=== PATIENT | female | born 1960 | race Caucasian/White ===

== ENCOUNTER 2016-11-21 07:26 | Day surgery (SDC) | payer BC ==
[2016-11-20 08:48] VITALS: BMI 30.9
[~2016-11-21 07:26] MED LIST: LACTATED RINGERS 1,000 ML IV SCH; LIDOCAINE 1% 20 ML VIAL (10MG/ML) FOR IV START INTRADERMA PRN
[2016-11-21 07:57] VITALS: RESP 18; TEMP 97.9
[2016-11-21] MEDS ORDERED: PROPOFOL 10 MG/ML 20 ML VIAL IV ONE (08:15)
[2016-11-21] MEDS ORDERED: LIDOCAINE 1% INJ 10MG/ML (20 ML MDV) ONE (08:15)
--- NOTE | 2016-11-21 08:35 | P.PCN ---
Date of Procedure: 11/21/16 Procedure(s) Performed: BRIEF HISTORY: Patient is a 56-year-old pleasant white female, scheduled for an elective colonoscopy as a part of screening for colorectal neoplasia. PROCEDURE PERFORMED: Colonoscopy with snare polypectomy. PREOPERATIVE DIAGNOSIS: Screening for colon cancer. IV sedation per Anesthesia. PROCEDURE: After informed consent was obtained, the patient, was brought into the endoscopy unit. IV sedation was administered by Anesthesia under continuous monitoring. Digital rectal examination was normal. Initially the Olympus CF- 160 flexible video colonoscope was then inserted in the rectum, gradually advanced into the cecum without any difficulty. Careful examination was performed as the scope was gradually being withdrawn. Ileocecal valve and the appendiceal orifice were visualized and appeared normal. Prep was excellent. Mucosa of the cecum, ascending colon, transverse colon, descending colon, appeared normal. In the sigmoid colon scattered Sigmoid diverticulosis seen. The rest of the sigmoid colon, and rectum appeared normal. In the rectum there were 3 polyps measuring between 5 mm to 1 size all of which were removed by snare polypectomy. Retroflexion was performed in the rectum and no lesions were seen. The patient tolerated the procedure well. IMPRESSION: 5 mm to 1 cm 3 rectal polyps status post polypectomy Scattered sigmoid diverticulosis RECOMMENDATIONS: Findings of this examination were discussed with the patient as well as her family. She was advised to follow with the biopsy results. If the biopsy shows a tubular adenoma she can have a repeat colonoscopy in 5 years.
[2016-11-21 08:55] VITALS: BP 129/82; PULSE 61
== END 2016-11-21 09:15 | disposition home or self-care (01) ==
LOC: ORWHC2ENDO 07:26
PROVIDERS: ATTEND Internal Medicine Gastroenterology
DX: Z12.11 Encounter for screening for malignant neoplasm of colon (principal); D12.8 Benign neoplasm of rectum; K57.30 Diverticulosis of large intestine without perforation or abscess without bleeding; E07.9 Disorder of thyroid, unspecified; I10 Essential (primary) hypertension; Z87.891 Personal history of nicotine dependence; F32.9 Major depressive disorder, single episode, unspecified; Z79.899 Other long term (current) drug therapy
CPT/HCPCS: 88305; 45385; J2001; J2704

== ENCOUNTER → 2022-07-31 | Outpatient (CLI) | payer BC ==
--- NOTE | 2022-08-01 09:45 | MM ---
Reason for Exam: Screening (asymptomatic). Last mammogram was performed 6 year(s) and 4 month(s) ago. Patient History: Menarche at age 10. First Full-Term at age 21. Hysterectomy at age 33. Paternal aunt had breast cancer, age 70. Risk Values: Brunilda 5 year model risk: 1.4%. NCI Lifetime model risk: 5.8%. Prior Study Comparison: 10/08/2010 Bilateral Screening Mammogram, [facility]. 04/03/2016 Bilateral Screening Mammogram, [facility]. Tissue Density: There are scattered fibroglandular densities. Findings: Analyzed By CAD. There is no suspicious group of microcalcifications or new suspicious mass in either breast. Stable chronic nodularity within the right breast. Overall Assessment: Benign, BI-RAD 2 Management: Screening Mammogram of both breasts in 1 year. A clinical breast exam by your physician is recommended on an annual basis and results should be correlated with mammographic findings. Electronically signed and approved by: Homero Foreman D.O.
== END | disposition home or self-care (01) ==
LOC: RADMAMWWP 09:07
PROVIDERS: ATTEND Family Medicine
DX: Z12.31 Encounter for screening mammogram for malignant neoplasm of breast (principal); Z80.3 Family history of malignant neoplasm of breast
CPT/HCPCS: 77067

== ENCOUNTER → 2024-04-12 | Outpatient (CLI) | payer MEDICARE ==
--- NOTE | 2024-04-12 23:22 | BD ---
EXAMINATION TYPE: Axial Bone Density DATE OF EXAM: 04/12/2024 CLINICAL HISTORY: 64 years old Female. ICD-10 CODE: Z13.820 OSTEOPOROSIS SC Height: 60in Weight: 173lb FRAX RISK QUESTIONS: Alcohol (3 or more units per day): yes History of Fracture in Adulthood: yes Secondary Osteoporosis: 3. Menopause before 45: yes Current Tobacco Use: yes RISK FACTORS HISTORY OF: History of Wrist Fracture: yes, right When: 2023 MEDICATIONS: Thyroid Medications: Which medication: Levothyroxine How Lon years EXAM MEASUREMENTS: Bone mineral densitometry was performed using the [employer] System. Bone mineral density as measured about the Lumbar spine is: ----- L1-L4(G/cm2): 1.241 T Score Values are as follows: ----- L1: -1.0 ----- L2: -0.3 ----- L3: 1.4 ----- L4: 1.3 ----- L1-L4: 0.5 Z Score Values are as follows: ----- L1: 0.2 ----- L2: 0.9 ----- L3: 2.5 ----- L4: 2.4 ----- L1-L4: 1.7 First dexa at [facility] Bone mineral density about the R hip (g/cm2): 1.031 Bone mineral density about the L hip (g/cm2): 1.030 T Score values are as follows: -----R Neck: -1.2 -----L Neck: -0.8 -----R Total: 0.2 -----L Total: 0.2 Z Score values are as follows: -----R Neck: 0.0 -----L Neck: 0.4 -----R Total: 1.1 -----L Total: 1.1 First dexa at [facility] FRAX%s: The graph provided illustrates a 13.2% chance for a major osteoporotic fx and a 1.9% chance f or the hips probability for fx in 10 years time. IMPRESSION: Osteopenia (T Score between -2.5 and -1). There is slightly increased risk of fracture and the patient may be considered for treatment. Re-Screen 2-5 years. NOTE: T-SCORE=SD OF THE YOUNG ADULT MEAN. [facility], , 04/12/2024 11:20 PM
--- NOTE | 2024-04-13 11:52 | MM ---
Reason for Exam: Screening (asymptomatic). Last mammogram was performed 1 year(s) and 8 month(s) ago. Indicated Problems: Lump or thickening of the right side for 1 Month(s). Patient History: Menarche at age 10. First Full-Term at age 21. Hysterectomy at age 33. Paternal aunt had breast cancer, age 70. Risk Values: Brunilda 5 year model risk: 1.5%. NCI Lifetime model risk: 5.4%. Prior Study Comparison: 10/08/2010 Bilateral Screening Mammogram, [facility]. 04/03/2016 Bilateral Screening Mammogram, [facility]. 07/31/2022 Bilateral MG screening mammo w CAD, [facility]. Tissue Density: There are scattered areas of fibroglandular density. Findings: Analyzed By CAD. Right breast: Asymmetric tissue in the area of palpable abnormality. Left breast: There is no suspicious group of microcalcifications or new suspicious mass. Overall Assessment: Incomplete: need additional imaging evaluation, BI-RAD 0 Management: Diagnostic Mammogram of both breasts. Diagnostic Breast Ultrasound of the right breast. [facility] will attempt to contact patient to return for supplemental views and ultrasound if indicated. Patient should continue monthly self-breast exams. A clinical breast exam by your physician is recommended on an annual basis. This exam should not preclude additional follow-up of suspicious palpable abnormalities. Note on Brunilda scores and lifetime risk: 1. A Brunilda score greater than 3% is considered moderate risk. If this is the case, consider specialist referral to assess eligibility for a risk reducing agent. 2. If overall lifetime risk for the development of breast cancer is 20% or higher, the patient may qualify for future screening with alternating mammogram and breast MRI. [facility], , 04/13/2024 11:48 AM. Electronically signed and approved by: Servando Guerra DO
== END | disposition home or self-care (01) ==
LOC: RADMAMWWP 07:26
PROVIDERS: ATTEND Family Medicine
DX: Z12.31 Encounter for screening mammogram for malignant neoplasm of breast (principal); Z13.820 Encounter for screening for osteoporosis; Z78.0 Asymptomatic menopausal state; Z80.3 Family history of malignant neoplasm of breast
CPT/HCPCS: 77063; 77067; 77080

== ENCOUNTER → 2024-05-02 | Outpatient (CLI) | payer MEDICARE ==
--- NOTE | 2024-05-02 09:29 | USB ---
Reason for Exam: Additional evaluation requested from abnormal screening. Patient History: Menarche at age 10. First Full-Term at age 21. Hysterectomy at age 33. Paternal aunt had breast cancer, age 70. Risk Values: Brunilda 5 year model risk: 1.5%. NCI Lifetime model risk: 5.4%. Technique: Method: Targeted. Prior Study Comparison: 04/03/2016 Bilateral Screening Mammogram, [facility]. 07/31/2022 Bilateral MG screening mammo w CAD, [facility]. 04/12/2024 Bilateral MG 3D screening mammo w/cad, [facility]. Findings: The area of palpable concern of the right breast, the axilla of the right breast and the retroareolar of the right breast were scanned. Electronically signed and approved by: Delvin Vargas M.D. Radiologis
== END | disposition home or self-care (01) ==
LOC: RADMAMWWP 08:02
PROVIDERS: ATTEND Family Medicine
DX: R92.8 Other abnormal and inconclusive findings on diagnostic imaging of breast

== ENCOUNTER 2024-08-17 07:36 | Day surgery (SDC) | payer MEDICARE ==
[2024-08-15 11:16] VITALS: BMI 33.2
[~2024-08-17 07:36] MED LIST changes: -LACTATED RINGERS 1,000 ML IV SCH; +LIDOCAINE 1% (10MG/ML) FOR IV START INTRADERMA PRN; -LIDOCAINE 1% 20 ML VIAL (10MG/ML) FOR IV START INTRADERMA PRN
[2024-08-17 08:13] VITALS: TEMP 97
[2024-08-17] MEDS: LACTATED RINGERS 1,000 ML IV SCH (08:15)
[2024-08-17] MEDS: LACTATED RINGERS 1,000 ML IV ONE (08:40)
[2024-08-17] MEDS ORDERED: PROPOFOL 10 MG/ML 20 ML VIAL IV ONE (08:40)
--- NOTE | 2024-08-17 09:01 | P.PCN ---
Date of Procedure: 08/17/24 Procedure(s) Performed: BRIEF HISTORY: Patient is a 64-year-old pleasant white female scheduled for an elective colonoscopy as a part of screening for colon cancer because of prior history of colon polyps. Last colonoscopy was 7 years ago and was noted to have serrated adenoma. PROCEDURE PERFORMED: Colonoscopy snare polypectomy. PREOPERATIVE DIAGNOSIS: Screening for history of colon polyps/history of serrated adenoma IV sedation per Anesthesia. PROCEDURE: After informed consent was obtained, the patient, was brought into the endoscopy unit. IV sedation was administered by Anesthesia under continuous monitoring. Digital rectal examination was normal. Initially the Olympus CF-160 flexible video colonoscope was then inserted in the rectum, gradually advanced into the cecum without any difficulty. Careful examination was performed as the scope was gradually being withdrawn. Ileocecal valve and the appendiceal orifice were visualized and appeared normal. Prep was excellent. Mucosa of the cecum, ascending colon, transverse colon, descending colon, normal. In the distal sigmoid colon there was a 5 mm and 6 mm polyp removed by cold snare polypectomy. In the rectosigmoid colon there were 2 polyps measuring 4 and 5 mm in size removed by cold snare polypectomy. Scattered left-sided diverticulosis seen. Rest of the sigmoid colon, and rectum appeared normal. Retroflexion was performed in the rectum and no lesions were seen. The patient tolerated the procedure well. IMPRESSION: 5 mm and 6 mm sigmoid colon polyp status post cold snare polypectomy 4 mm and 5 mm rectosigmoid polyp status post cold snare polypectomy Scattered sigmoid diverticulosis RECOMMENDATIONS: Findings of this examination were discussed with the patient as well as her family. She was advised to follow-up with the biopsy results. If the biopsy reveals adenoma she can have repeat colonoscopy in 5 years.. 64
[2024-08-17 09:22] VITALS: BP 111/74; PULSE 72; RESP 18
== END 2024-08-17 09:54 | disposition home or self-care (01) ==
LOC: ORWHC2ENDO 07:36
PROVIDERS: ATTEND Internal Medicine Gastroenterology
DX: Z12.11 Encounter for screening for malignant neoplasm of colon (principal); K57.30 Diverticulosis of large intestine without perforation or abscess without bleeding; I10 Essential (primary) hypertension; F32.A Depression, unspecified; H91.90 Unspecified hearing loss, unspecified ear; E07.9 Disorder of thyroid, unspecified; F12.90 Cannabis use, unspecified, uncomplicated; Z79.890 Hormone replacement therapy; Z79.899 Other long term (current) drug therapy; Z86.0101 Personal history of adenomatous and serrated colon polyps; Z90.710 Acquired absence of both cervix and uterus
CPT/HCPCS: 45385; J2704; 88305